=== PATIENT | female | born 1970 | race African-American/Black ===

== ENCOUNTER 2018-01-20 09:48 | Emergency (ER) | payer OTHER ==
[~2018-01-20] VITALS: Ht 160 cm; Wt 85.3 kg
[~2018-01-20 09:48] MED LIST: APAP PO; BUTALB PO; CALCIUM + D 6001 TAB PO; HYDROXYZINE HCL25 MG PO; MOBIC15 MG PO; PANTOPRAZOLE SO40 MG PO; PROPRANOLOL HCL10 M1 PO; TERAZOL 745 GM VG; TRAZODONE50 MG PO; VENLAFAXINE HC225 MG PO; VENLAFAXINE225 MG PO; WELLBUTRIN XL300 MG PO
--- NOTE | 2018-01-20 14:06 | ED INFLUENZA/URI COMPLAINT ---
History of Present Illness General Chief Complaint: Upper Respiratory Sx/Fever Stated Complaint: URI SEEN BY PMD ON 01/18 Source: patient, old records Exam Limitations: no limitations Vital Signs & Intake/Output Vital Signs & Intake/Output Vital Signs Date Time Temp Pulse Resp B/P B/P Pulse O2 O2 Flow FiO2 Mean Ox Delivery Rate 01/20 1408 100 Room Air 01/20 1408 98.1 74 18 113/69 98 Room Air 01/20 1018 99.0 94 20 115/77 98 Room Air Allergies Coded Allergies: NO KNOWN ALLERGIES (UNKNOWN 06/20/17) Reconcile Medications Azithromycin 250 MG TABLET 1 DP PO AD URI (Reported) 2 the first day followed by 1 for days 2-5 Codeine Phosphate/Guaifenesi (Cheratussin AC Syrup) 10 MG-100 MG/5 ML LIQUID 10 ML PO Q6P PRN COUGH Propranolol HCl 10 MG TABLET 1 TAB PO BID ANXIETY (Reported) Terconazole (Terazol 7) 0.4 % CREAM.APPL 1 A VG QPM RASH (Reported) TRAZODONE HCL (Trazodone HCl) 50 MG TABLET 1 TAB PO PRN SLEEP (Reported) VENLAFAXINE HCL (Venlafaxine HCl ER) 225 MG TAB.ER.24 1 TAB PO DAILY MENTAL HEALTH (Reported) Venlafaxine HCl (Venlafaxine HCl ER) 225 MG TAB.ER.24 1 TAB PO DAILY ANXIETY (Reported) Triage Note: PT STATES THAT SHE WAS SEEN FOR COUGH 2 DAYS AGO AND STRATED ON ABT, STATES THAT SHE IS FEELING NO BETTER AND THAT WHEN SHE COUGHS SHE IS GETTING A PAIN IN HER HEAD. DENIES THE PAIN AT THIS TIME. COUGH IS PRODUCTIVE OF YELLOW SPUTUM. AFEBRILE AT TRIAGE Triage Nurses Notes Reviewed? yes HPI: Patient seen by her primary care physician 2 days ago for a productive cough with white sputum, chills and sinus congestion. Patient a chest x-ray which was negative and a flu swab which was also negative. Patient was given a prescription for a Z-Chandrakant as well as Tessalon Perles. Patient states that she is still having the cough and chills. Patient states that she cough so much she feels short of breath. There is no shortness of breath when she is not coughing. There is no chest pain or chest tightness. Patient states that she is also getting a headache when she coughs. Headache is only present when she is actively coughing. It is throbbing sensation in the frontal area. There is no blurry vision. There is no nausea or vomiting. There is no headache when she is not coughing. Patient is concerned because the headache she comes to the emergency department for evaluation. Past History Travel History Traveled to [place] past 21 day No Medical History Any Pertinent Medical History? see below for history Neurological: NONE EENT: NONE Cardiovascular: NONE Respiratory: NONE Gastrointestinal: GERD Hepatic: NONE Renal: NONE Musculoskeletal: NONE Psychiatric: anxiety, depression Surgical History Surgical History: none Psychosocial History What is your primary language Albanian Tobacco Use: Never used ETOH Use: denies use Illicit Drug Use: denies illicit drug use Family History Hx Contributory? No Review of Systems Review of Systems Constitutional: Reports: no symptoms. EENTM: Reports: no symptoms. Respiratory: Reports: see HPI, cough, short of breath, sputum production. Cardiovascular: Reports: no symptoms. GI: Reports: no symptoms. Genitourinary: Reports: no symptoms. Musculoskeletal: Reports: no symptoms. Skin: Reports: no symptoms. Neurological/Psychological: Reports: see HPI, headache. Hematologic/Endocrine: Reports: no symptoms. Immunologic/Allergic: Reports: no symptoms. All Other Systems: Reviewed and Negative Physical Exam Physical Exam General Appearance: well developed/nourished, alert, awake, mild distress Head: atraumatic, normal appearance Eyes: Bilateral: PERRL, EOMI. Ears, Nose, Throat: normal ENT inspection, moist mucous membrane, hearing grossly normal Neck: normal inspection, supple Respiratory: normal breath sounds, chest non-tender, no respiratory distress, lungs clear Cardiovascular: regular rate/rhythm, normal peripheral pulses Gastrointestinal: normal bowel sounds, soft, non-tender, no organomegaly Back: normal inspection, normal range of motion Extremities: normal inspection, normal capillary refill, normal range of motion, no edema Neurologic/Psych: no motor/sensory deficits, awake, alert, oriented x 3, normal gait, normal mood/affect Skin: intact, normal color, warm/dry Lymphatic: no anterior cervical kiera Core Measures Sepsis Present: No Sepsis Focused Exam Completed? No Progress Differential Diagnosis: influenza, pneumonia, sinusitis, VIRAL SYNDROME Plan of Care: Orders Procedure Date/time Status CT HEAD WO IV CONTRAST 01/20 1405 Active Diagnostic Imaging: Viewed by Me: CT Scan. Discussed w/RAD: CT Scan. Radiology Impression: PATIENT: DILIP ESTRADA PRESENT AGE: 47 PATIENT ACCOUNT NO: [id number] : 68 LOCATION: [facility] ORDERING PHYSICIAN: Nicholas Khoury MD SERVICE DATE: 01/20/18 EXAM TYPE: CAT - CT HEAD WO IV CONTRAST EXAMINATION: CT HEAD WITHOUT CONTRAST CLINICAL INFORMATION: 47-year-old female with headache COMPARISON: None TECHNIQUE: Contiguous axial imaging was performed from the skull base to vertex without intravenous administration of contrast. DLP: 633 mGy-cm FINDINGS: Brain parenchyma: Normal attenuation. Torres-white matter differentiation is well preserved. No evidence of an acute major vascular territory infarction, cerebral edema, hemorrhage, mass or midline shift. Cerebrospinal fluid spaces: No hydrocephalus or extra-axial fluid collections. 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 Cerebellum and brainstem: Unremarkable. The 4th ventricle is midline in position. The cerebellopontine angles are normal. Calvarium and temporomandibular joints: Calvarium is intact. Mastoid air cells and middle ear cavities are well aerated. The TMJs are normal. Paranasal sinuses and orbits: Mild mucosal thickening of some of the bilateral ethmoid air cells. Otherwise, the visualized paranasal sinuses are normal. The orbits are unremarkable. Other: No acute findings in the visualized extracranial soft tissues. IMPRESSION: No acute intracranial pathology. DICTATED BY: Malachi Shah MD DATE/TIME DICTATED :01/20/181429 [employer]OLDER:LESLY DATE/TIME TRANSCRIBED:01/20/181429 CONFIDENTIAL, DO NOT COPY WITHOUT APPROPRIATE AUTHORIZATION. < Electronically signed in Other Vendor System> SIGNED BY: Malachi Shah MD 01/20/181435 Initial ED EKG: none Comments: PT IS VERY CONCERNED THAT SHE HAS SOMETHING GOING ON IN HER HEAD AND WOULD FEEL MORE COMFORTABLE WITH A CT SCAN OF HER HEAD. OT ADVISED OF THE RISKS OF RADIATION. PT VERBALLY UNERSTANDS THESE RISKS BUT WANTS TO CT SCAN ANYWAY. ct scan results discussed with pt. questions have been answered. Departure Departure Disposition: HOME OR SELF CARE Condition: Stable Clinical Impression Primary Impression: URI (upper respiratory infection) Secondary Impressions: Headache Referrals: Celso Houston MD (PCP/Family) Additional Instructions: TAKE COUGH MEDICINE NEEDED. IT HAS CODEINE IN IT SO DO NOT DRIVE AFTER TAKING IT. RETURN IF SYMPTOMS WORSEN OR FOR ANY CONCERNS Departure Forms: Customer Survey General Discharge Information Prescriptions: Current Visit Scripts Codeine Phosphate/Guaifenesi (Cheratussin AC Syrup) 10 ML PO Q6P PRN COUGH #240 ML
[2018-01-20 14:08] VITALS: BP 113/69
[2018-01-20] MEDS ORDERED: AZITHROMYCIN250 M1 PO (14:10)
--- NOTE | 2018-01-20 14:36 | CT SCAN REPORT ---
EXAMINATION: CT HEAD WITHOUT CONTRAST CLINICAL INFORMATION: 47-year-old female with headache COMPARISON: None TECHNIQUE: Contiguous axial imaging was performed from the skull base to vertex without intravenous administration of contrast. DLP: 633 mGy-cm FINDINGS: Brain parenchyma: Normal attenuation. Torres-white matter differentiation is well preserved. No evidence of an acute major vascular territory infarction, cerebral edema, hemorrhage, mass or midline shift. Cerebrospinal fluid spaces: No hydrocephalus or extra-axial fluid collections. 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 Cerebellum and brainstem: Unremarkable. The 4th ventricle is midline in position. The cerebellopontine angles are normal. Calvarium and temporomandibular joints: Calvarium is intact. Mastoid air cells and middle ear cavities are well aerated. The TMJs are normal. Paranasal sinuses and orbits: Mild mucosal thickening of some of the bilateral ethmoid air cells. Otherwise, the visualized paranasal sinuses are normal. The orbits are unremarkable. Other: No acute findings in the visualized extracranial soft tissues. IMPRESSION: No acute intracranial pathology.
[2018-01-20] MEDS ORDERED: CHERATUSSIN AC118 M1 PO (14:57)
== END 2018-01-20 15:01 ==
LOC: ERH 09:48
DX: J06.9 Acute upper respiratory infection, unspecified (principal); R51 Headache